=== PATIENT | male | born 1995 | race Two or more races ===

== ENCOUNTER 2018-08-24 16:37 | Emergency (ER) | payer OTHER ==
[~2018-08-24] VITALS: Ht 190.5 cm; Wt 95.3 kg
== END 2018-08-24 22:55 | disposition home or self-care (01) ==
LOC: ER 16:37
DX: S90.111A Contusion of right great toe without damage to nail, initial encounter (principal); W22.8XXA Striking against or struck by other objects, initial encounter; Y93.89 Activity, other specified; Y92.89 Other specified places as the place of occurrence of the external cause; Y99.8 Other external cause status